=== PATIENT | female | born 1965 | race Hispanic/Latino ===

== ENCOUNTER 2017-05-02 12:41 | Outpatient (CLI) | payer OTHER, SELFPAY | END 2017-05-02 12:42 | disposition home or self-care (01) | LOC: BICMAMMO 12:41 | PROVIDERS: ATTEND Family Medicine | DX: Z12.31 Encounter for screening mammogram for malignant neoplasm of breast (principal) | CPT/HCPCS: 77063; 77067 ==

== ENCOUNTER 2018-02-22 09:53 | Outpatient (CLI) | payer OTHER ==
--- NOTE | 2018-02-22 11:15 | ULT ---
PELVIC ULTRASOUND: Date: 02-22-18 Comparison: None. History: Pelvic pain, low back pain that goes down the legs. Technique: Multiplanar grayscale sonographic imaging of the pelvis obtained with endovaginal imaging. FINDINGS: The patient is status post hysterectomy. Right ovary is visualized and is assessed with color flow/sp ectral analysis. The left ovary is nonvisualized. There is no free fluid in the pelvic cul-de-sac. The right ovary measures 1.9 x 2.3 x 1.0 cm. There is a right ovarian cyst measuring 1.3 x 0.8 x 1.2 cm and demonstrates no internal blood flow. IMPRESSION: Small right ovarian cyst - otherwise unremarkable. POS: [facility]
== END 2018-02-22 09:54 | disposition home or self-care (01) ==
LOC: BICULT 09:53
PROVIDERS: ATTEND Physician Assistant
DX: R10.2 Pelvic and perineal pain (principal); N83.201 Unspecified ovarian cyst, right side
CPT/HCPCS: 76856

== ENCOUNTER 2018-05-22 15:18 | Outpatient (CLI) | payer OTHER ==
[~2018-05-22 15:18] MED LIST: Gadobenate Dimeglumine 529 MG/1 ML (20ML VIAL) ONE
--- NOTE | 2018-05-22 16:54 | MRI ---
MRI BRAIN WITH AND WITHOUT CONTRAST 05/22/18 HISTORY: Headache. COMPARISON: CT brain 05/09/17. FINDINGS: On the diffusion weighted imaging sequence there are no abnormal areas of diffusion restriction. On t he susceptibility weighted imaging sequence, there are no areas of hemorrhage. Postcontrast imaging demonstrates no abnormal enhancement. No pachymeningeal or leptomeningeal enhanc ement. No midline shift or mass effect. Ventricular size is normal. Cerebellar tonsils terminate at the leve l of the foramen magnum. Clivus appears normal as well as the upper cervical spine. Globes are normal. No significant deep white matter microvascular ischemic changes. IMPRESSION: Normal exam. POS: [facility]
== END 2018-05-22 15:19 | disposition home or self-care (01) ==
LOC: BICMRI 15:18
PROVIDERS: ATTEND Otolaryngology Facial Plastic Surgery
DX: R51 Headache (principal); R42 Dizziness and giddiness
CPT/HCPCS: 70553; A9577

== ENCOUNTER 2018-09-25 07:40 | Outpatient (CLI) | payer OTHER ==
--- NOTE | 2018-09-25 08:08 | ULT ---
THYROID ULTRASOUND INDICATION: Left neck swelling for 2 months TECHNIQUE: Grayscale and color Doppler images were obtained of the thyroid gland. COMPARISON: None FINDINGS: Right thyroid lobe: The right thyroid lobe measures 4.5 x 1.5 x 1.9 cm. No focal thyroid lesion ident ified. Thyroid isthmus: The thyroid isthmus measures 0.66 cm. Left thyroid lobe: The left thyroid lobe measures 5.7 x 2.9 x 3.1 cm. There is a predominantly solid nodule with some internal cystic features seen within the mid to lower left thyroid lobe consistent with a TIRADS 2 lesion. The lesion is predominantly hyperechoic, well-circumscribed and wider than ta ll. The nodule measures 4.7 x 3.0 x 3.6 cm. IMPRESSION: 1. 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 The lesion is not suspicious morphologically. No FNA is recommended.
== END 2018-09-25 07:41 | disposition home or self-care (01) ==
LOC: SCSULT 07:40
PROVIDERS: ATTEND Family Medicine
DX: E04.9 Nontoxic goiter, unspecified (principal); E07.9 Disorder of thyroid, unspecified
CPT/HCPCS: 76536

== ENCOUNTER 2018-10-05 14:41 | Outpatient (CLI) | payer OTHER ==
--- NOTE | 2018-10-05 15:55 | MMO ---
Bilateral MAMMO Bilat Screen [facility]. CLINICAL HISTORY: Patient is 53 years old and is seen for screening. The patient has no family history of breast cancer. The patient has no personal history of cancer. VIEWS: The views performed were: bilateral craniocaudal with tomosynthesis and bilateral mediolateral oblique with tomosynthesis. FILMS COMPARED: The present examination has been compared to prior imaging studies performed at [facility] on 01/17/2014, 04/07/2015, 04/26/2016 and 05/02/2017. MAMMOGRAM FINDINGS: There are scattered fibroglandular densities. Finding 1: There are stable benign appearing densities seen in both breasts. Finding 2: There are stable benign appearing calcifications seen in the right breast. There are no suspicious masses, suspicious calcifications, or new areas of architectural distortion. IMPRESSION: THERE IS NO MAMMOGRAPHIC EVIDENCE OF MALIGNANCY. A ROUTINE FOLLOW-UP MAMMOGRAM IN 1 YEAR IS RECOMMENDED. THE RESULTS OF THIS EXAM WERE SENT TO THE PATIENT. ACR BI-RADS Category 2 - Benign finding MAMMOGRAPHY NOTE: 1. A negative mammogram report should not delay a biopsy if a dominant of clinically suspicious mass is present. 2. Approximately 10% to 15% of breast cancers are not detected by mammography. 3. Adenosis and dense breasts may obscure an underlying neoplasm. Reported by: MARY NEWTON MD Electonically Signed: [id number]
== END 2018-10-05 14:42 | disposition home or self-care (01) ==
LOC: BICMAMMO 14:41
PROVIDERS: ATTEND Family Medicine
DX: Z12.31 Encounter for screening mammogram for malignant neoplasm of breast (principal)
CPT/HCPCS: 77063; 77067

== ENCOUNTER 2019-12-27 15:49 | Outpatient (CLI) | payer OTHER ==
--- NOTE | 2019-12-27 16:18 | MMO ---
Bilateral MAMMO Bilat Screen [facility]. CLINICAL HISTORY: Patient is 54 years old and is seen for screening. The patient has no family history of breast cancer. The patient has no personal history of cancer. VIEWS: The views performed were: bilateral craniocaudal with tomosynthesis and bilateral mediolateral oblique with tomosynthesis. FILMS COMPARED: The present examination has been compared to prior imaging studies performed at [facility] on 04/07/2015, 04/26/2016, 05/02/2017 and 10/05/2018. This study has been interpreted with the assistance of computer-aided detection. MAMMOGRAM FINDINGS: There are scattered fibroglandular densities. There are no suspicious masses, suspicious calcifications, or new areas of architectural distortion. IMPRESSION: THERE IS NO MAMMOGRAPHIC EVIDENCE OF MALIGNANCY. A ROUTINE FOLLOW-UP MAMMOGRAM IN 1 YEAR IS RECOMMENDED. THE RESULTS OF THIS EXAM WERE SENT TO THE PATIENT. ACR BI-RADS Category 1 - Negative MAMMOGRAPHY NOTE: 1. A negative mammogram report should not delay a biopsy if a dominant of clinically suspicious mass is present. 2. Approximately 10% to 15% of breast cancers are not detected by mammography. 3. Adenosis and dense breasts may obscure an underlying neoplasm. Reported by: SAMANTHA WALKER MD Electonically Signed: [id number]
== END 2019-12-27 15:50 | disposition home or self-care (01) ==
LOC: BICMAMMO 15:49
PROVIDERS: ATTEND Family Medicine
DX: Z12.31 Encounter for screening mammogram for malignant neoplasm of breast (principal)
CPT/HCPCS: 77063; 77067

== ENCOUNTER 2022-04-27 14:53 | Outpatient (CLI) | payer OTHER | END 2022-04-27 14:54 | disposition home or self-care (01) | LOC: BICULT 14:53 | PROVIDERS: ATTEND Physician Assistant | DX: E01.0 Iodine-deficiency related diffuse (endemic) goiter (principal); E04.1 Nontoxic single thyroid nodule | CPT/HCPCS: 76536 ==